=== PATIENT | male | born 1995 | race Caucasian/White ===

== ENCOUNTER 2016-11-25 14:20 | Emergency (ER) | payer BC ==
[~2016-11-25] VITALS: Ht 177.8 cm; Wt 81.1 kg
[~2016-11-25 14:20] MED LIST: AMPH30TA2 PO
[2016-11-25 14:37] VITALS: TEMP 36.9; O2SAT 97; Ht 177.8 cm; Wt 81.1 kg
[2016-11-25] MEDS ORDERED: OPTIRAY 320 IV PRN (16:00)
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
[2016-11-25 17:51] VITALS: BP 120/80; PULSE 72
[2016-11-26 14:18] LABS: ISTAT CREATININE 1.1 mg/dl (0.6-1.3); ISTAT IONIZED CALCIUM 1.21 mmol/l (1.12-1.32)
== END 2016-11-25 17:57 | disposition home or self-care (01) ==
LOC: C.EDB 14:21 → C.EDD 17:57
DX: T74.11XA Adult physical abuse, confirmed, initial encounter (principal); S20.211A Contusion of right front wall of thorax, initial encounter; Y04.0XXA Assault by unarmed brawl or fight, initial encounter; Y07.9 Unspecified perpetrator of maltreatment and neglect; S00.11XA Contusion of right eyelid and periocular area, initial encounter; S30.811A Abrasion of abdominal wall, initial encounter

== ENCOUNTER 2017-03-24 03:30 | Emergency (ER) | payer BC ==
[~2017-03-24] VITALS: Ht 180.3 cm; Wt 85.0 kg
[2017-03-24 03:36] VITALS: TEMP 36.5; Ht 180.3 cm; Wt 85.0 kg
[2017-03-24] MEDS ORDERED: XYLOCAINE 1%/SOD BICARB 20 ML VIAL INFIL ONE (03:43)
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
[2017-03-24 04:07] VITALS: BP 142/80; PULSE 78; O2SAT 98
== END 2017-03-24 04:09 | disposition home or self-care (01) ==
LOC: C.EDB 03:32 → C.EDA 04:09
DX: S51.811A Laceration without foreign body of right forearm, initial encounter (principal); W45.8XXA Other foreign body or object entering through skin, initial encounter; Y92.9 Unspecified place or not applicable; Z79.899 Other long term (current) drug therapy